=== PATIENT | male | born 1965 | race Caucasian/White ===

== ENCOUNTER 2017-01-26 17:37 | Inpatient (IN) | payer BC ==
[~2017-01-26] VITALS: Ht 177.8 cm; Wt 86.2 kg
--- NOTE | ~2017-01-26 | EEG ---
PATIENT:MORENO NO DATE OF SERVICE: 01/26/17 MEDICAL RECORD: [id number] DATE OF : 63 LOCATION:D.220 D.MS ADMISSION DATE: 01/26/17 REFERRING PHYSICIAN: INTERPRETING PHYSICIAN: JANICE OBRIEN MD DATE OF SERVICE: 01/29/2017 Referred by myself as an inpatient, currently in room 2204. ELECTROENCEPHALOGRAM NUMBER: [id number]. DATE OF EXAMINATION: 01/28/2017 at 10:30 a.m. TECHNICAL DATA: This electroencephalographic recording consists of approximately 20 minutes of data collection utilizing the international 10/20 system of electrode placement and both referential and non-referential montages. Sixteen channels of electrocerebral recording are accompanied by a 17th channel dedicated to the electrocardiographic rhythm and 2 channels of electromyographic recording. Recording is performed in the awake and drowsy states utilizing activation by photic stimulation. ELECTROENCEPHALOGRAPHIC DATA: The awake state comprises approximately 30% of the recorded electrocerebral activity. Electromyographic artifact is prominent and rapid eye movements are seen. The posterior dominant background consists of a well-developed symmetric semi-arrhythmic waxing and waning 9-10 Hz alpha activity, which is suppressed by eye opening. The drowsy state comprises the remaining portion of the recorded electrocerebral activity. Electromyographic artifact is diminished and rapid eye movements are not seen. The posterior dominant background is suppressed. Also seen is an intermittent irregular, generalized and symmetric 2-3 Hz delta slowing, which occurs for periods of 1-2 seconds approximately once every 2-3 pages. No abnormal or focal slowing is identified. No epileptiform discharges are seen. Photic stimulation induces no abnormal change in the recorded electrocerebral activity. INTERPRETATION: Normal (awake and drowsy). This is a normal electroencephalographic recording. TRANSINT:[id number] Voice Confirmation ID: [id number] DOCUMENT ID: [id number] JANICE OBRIEN MD CC: [id number] DICTATION DATE: 01/29/17917 COMPUTER TECHNOLOGIST: 01/30/17 0155 DIS IN 01/28/17 [facility] [address] [id number]
[2017-01-26 18:27] LABS: BASOPHILS 0.4 % (0-2); EOSINOPHILS 3.3 % (0-7); HEMATOCRIT 44.5 % (42.0-54.0); HEMOGLOBIN 16.2 g/dL (13.5-17.5); IMMATURE GRANULOCYTES 0.4 % (0-5); MCH 30.5 pg (26.0-34.0); MCHC 36.4 g/dL (31.0-37.0); MCV 83.8 fL (80.0-100.0); MONOCYTES 4.3 % (2-11); NEUTROPHILS 55.6 % (40-80); PLATELET COUNT 174 10x3/uL (130-400); RBC 5.31 10x6/uL (4.20-6.10); RDW 12.4 % (11.5-14.5)
[2017-01-26 18:42] LABS: ALBUMIN 3.9 g/dL (3.4-5.0); ANION GAP 21.9 mmol/L (8-16); BILIRUBIN - TOTAL 0.43 mg/dL (0.2-1.3); CARBON DIOXIDE 18.9 mmol/L (21.0-32.0); CREATININE - SERUM 1.1 mg/dL (0.6-1.3); POTASSIUM - SERUM 4.8 mmol/L (3.5-5.1); PROTEIN - SERUM 7.4 g/dL (6.4-8.2)
[2017-01-26 18:54] LABS: APTT 24.6 SECONDS (22.8-39.4); INR 0.92 (0.85-1.17); PROTIME 12.2 SECONDS (11.6-15.0)
[2017-01-26 20:00] VITALS: BP 137/83
[2017-01-26 21:36] VITALS: BP 137/83; BMI 27.3
[2017-01-27] VITALS: BP 105/61
[2017-01-27 04:00] VITALS: BP 109/64
[2017-01-27 09:00] VITALS: BP 109/64
[2017-01-27] MEDS ORDERED: METFORMIN HCL500 M1 PO (10:09)
[2017-01-27] MEDS ORDERED: LIPITOR40 MG PO (10:09)
[2017-01-27] MEDS ORDERED: BAYER CHEWABLE81 MG PO (10:10)
[2017-01-27 12:57] VITALS: Ht 177.8 cm; Wt 86.2 kg
[2017-01-27 13:13] VITALS: BP 117/69
[2017-01-27 17:58] VITALS: BP 120/71
[2017-01-27 19:00] VITALS: BP 130/68
[2017-01-28 00:03] VITALS: BP 135/74
[2017-01-28 03:30] VITALS: BP 129/78
[2017-01-28] MEDS ORDERED: ASPIRIN325 MG PO (08:20)
[2017-01-28] MEDS ORDERED: LAMICTAL100 MG PO (08:21)
[2017-01-28 09:36] VITALS: BP 132/79
== END 2017-01-28 14:42 | disposition home or self-care (01) | DRG 66 ==
LOC: D.ER 17:37 → D.MS 19:32
PROVIDERS: Emergency Medicine; ADMIT Emergency Medicine
DX: I63.9 Cerebral infarction, unspecified (principal); R13.10 Dysphagia, unspecified; E11.9 Type 2 diabetes mellitus without complications; R53.1 Weakness; G40.409 Other generalized epilepsy and epileptic syndromes, not intractable, without status epilepticus